=== PATIENT | female | born 1995 | race Caucasian/White ===

== ENCOUNTER → 2016-04-26 | Outpatient (CLI) | payer OTHER ==
[2016-04-26 14:38] LABS: BASO % 0.1 %; BASO ABS # 0.01 K/uL (0-0.2); COMPLETE YES; EOS % 0.1 %; HEMATOCRIT 41.6 % (37-47); IG% 0.2 %; LYMPH % 14.3 %; MEAN CELL VOLUME 87.9 fL (80-100); MEAN CORPUSCULAR HEMOGLOBIN 30.9 pg (25-34); MEAN CORPUSCULAR HGB CONC 35.1 g/dl (32-36); MEAN PLATELET VOLUME 11.2 fL (7.4-10.4); MONO % 4.2 %; NEUT % 81.1 %; PLATELET COUNT 271 K/uL (130-400); RED BLOOD COUNT 4.73 M/uL (4.2-5.4); WHITE BLOOD COUNT 9.76 K/uL (4.8-10.8)
== END | disposition home or self-care (01) ==
LOC: C.LAB1850 12:45
PROVIDERS: ATTEND Internal Medicine Pulmonary Disease
DX: J45.909 Unspecified asthma, uncomplicated (principal)

== ENCOUNTER → 2016-05-01 | Outpatient (CLI) | payer OTHER ==
--- NOTE | 2016-05-01 10:06 | DIAGNOSTIC IMAGING REPORT ---
CT SCAN OF THE PARANASAL SINUSES CLINICAL HISTORY: Cough. Sinusitis. COMPARISON STUDY: No priors. TECHNIQUE: High-resolution CT scan of the paranasal sinuses is performed. Images are reviewed in the axial, sagittal, and coronal planes. IV contrast was not administered for this examination. CT DOSE: 609.85 mGy.cm FINDINGS: Maxillary antra: Mild mucosal thickening seen on the right. Moderate to advanced because of thickening within air-fluid level seen on the left. Hyperdense secretions are noted in the left. Anterior ethmoid sinuses: Opacified on the left, moderate to advanced mucosal thickening on the right. Posterior ethmoid sinuses: Subtotally opacified on the left. Mild mucosal thickening on the right. Sphenoid sinuses: Moderate mucosal thickening with air-fluid levels is seen bilaterally. Frontal sinuses: Mild to moderate mucosal thickening is seen on the right. Moderate mucosal thickening is seen on the left with an air-fluid level. Ostiomeatal complexes: Occluded bilaterally. Frontoethmoidal and sphenoethmoidal recesses: The left sphenoethmoidal recess is occluded. The right sphenoethmoidal recess is severely narrowed by mucosal thickening but remains patent. The frontoethmoidal recesses are occluded bilaterally. Carotid arteries: The carotid arteries are covered and without septal attachments. Ethmoid roofs: There is asymmetric elevation of the left ethmoid roof as compared to the right. Nasal turbinates: Normal in appearance. Nasal septum: There is rightward deviation of the bony nasal septum with a bony spur. Optic nerves: Covered. Orbits: The bony orbits are intact. Orbital contents are normal in appearance. Calvarium: The imaged calvarium is normal in appearance Mastoid air cells: Well pneumatized. Brain parenchyma: Partially visualized brain parenchyma is within normal limits. IMPRESSION: Pansinusitis as above. Electronically signed by: Raul Banda M.D. 05/01/2016 10:05 AM Dictated Date/Time: 05/01/2016 9:59 AM
== END | disposition home or self-care (01) ==
LOC: C.CTS 09:44
PROVIDERS: ATTEND Internal Medicine Pulmonary Disease
DX: R05 Cough (principal); J32.4 Chronic pansinusitis

== ENCOUNTER → 2016-05-22 | Outpatient (CLI) | payer OTHER | END | disposition home or self-care (01) | LOC: C.LAB1850 15:32 | PROVIDERS: ATTEND Internal Medicine Pulmonary Disease | DX: R07.9 Chest pain, unspecified (principal) ==

== ENCOUNTER 2017-06-08 19:47 | Emergency (ER) | payer OTHER ==
[~2017-06-08] VITALS: Ht 157.5 cm; Wt 49.5 kg
[2017-06-08 19:49] VITALS: Ht 157.5 cm; Wt 49.5 kg
[2017-06-08] MEDS ORDERED: FAMOTIDINE 20 MG TAB PO STA (20:13)
[2017-06-08] MEDS ORDERED: GI COCKTAIL PO STA (20:13)
[2017-06-08] MEDS ORDERED: SUCRALFATE 1 GM TAB PO STA (20:13)
[2017-06-08] MEDS ORDERED: SODIUM CHLORIDE 0.9% 1000ML 1,000 ML IV STA (20:13)
--- NOTE | 2017-06-08 20:16 | EMERGENCY ROOM VISIT NOTE ---
History Report prepared by Vinicio: Koko Dale Under the Supervision of: Dr. Louie Peters M.D. First contact with patient: 20:01 Chief Complaint: ABDOMINAL PAIN Stated Complaint: ABD PAIN Nursing Triage Summary: lower abd pain that radiates to back History of Present Illness The patient is a 22 year old female who presents to the Emergency Room with complaints of waxing and waning abdominal pain that started a couple months ago. She states that she has been feeling generally unwell over the past couple months, with mostly constant nausea and general fatigue. The patient states that she has also had muscle, joint, and bone pain "all over". She says that eating makes her abdominal pain worse. The patient notes that last night, she laid down and her legs went "", which was followed up by abdominal pain, and more full body pain. She notes that she has to force herself to eat due to her nausea. The patient says that while taking a bath earlier today, she had yellow vaginal discharge. She notes that she saw her EXCHANGE ADMINISTRATOR 2 days ago and everything seemed normal, but she did not have cultures done. The patient adds that she has seen her primary care physician for her symptoms, and had an ultrasound done of her gallbladder, which came back normal. She notes that she has been constipated recently. The patient states that for the past several years, she has been getting lightheaded when sitting up. She got tested for POTS and it was negative. The patient says that she got checked for Lyme a year ago and it was negative. She notes that she has not noticed any tick bites or weird rashes, and she does not work in the [employer]. She says that her last menstrual period ended 2 days ago, and she denies any chance of retaining a tampon or chance or . Source of History: patient Onset: A couple months ago Position: abdomen Quality: other (pain) Timing: waxes/wanes Modifying Factors (Worsening): eating Associated Symptoms: + nausea, + fatigue Note: Associated symptoms: Full body pain. Yellow vaginal discharge yesterday. Legs "went " last night. Review of Systems See HPI for pertinent positives & negatives. A total of 10 systems reviewed and were otherwise negative. Past Medical & Surgical Medical Problems: (1) Asthma (2) Chronic fatigue Surgical Problems: (1) History of spinal fusion Family History Cancer Heart disease Hypertension Social History Smoking Status: Never Smoker Drug Use: none Marital Status: single Occupation Status: employed Current/Historical Medications Scheduled Fexofenadine Hcl (Elizabeth), 180 MG PO DAILY Montelukast Sodium (Singulair), 10 MG PO DAILY Allergies Coded Allergies: Amoxicillin (Unverified Allergy, Unknown, ., 06/08/17) Cephalexin (Unverified Allergy, Unknown, ., 06/08/17) Ciprofloxacin (Unverified Allergy, Unknown, ., 06/08/17) Citalopram (Unverified Allergy, Unknown, ., 06/08/17) Physical Exam Vital Signs Date Time Temp Pulse Resp B/P (MAP) Pulse Ox O2 Delivery O2 Flow Rate FiO2 06/09/17 00:04 36.3 82 18 108/66 99 06/08/17 22:44 90 18 113/68 99 Room Air 06/08/17 21:29 92 18 113/68 96 Room Air 06/08/17 20:31 92 06/08/17 20:28 78 21 115/66 100 Room Air 06/08/17 19:49 36.3 130 18 121/74 99 Room Air Physical Exam GENERAL: Awake, alert, tearful on exam, in no acute distress HENT: Normocephalic, atraumatic. Oropharynx unremarkable. EYES: Normal conjunctiva. Sclera non-icteric. NECK: Supple. No nuchal rigidity. FROM. No JVD. RESPIRATORY: Clear to auscultation. CARDIAC: Regular rate, normal rhythm. Extremities warm and well perfused. Pulses equal. ABDOMEN: Soft, non-distended. Tender in the left lower quadrant. No rebound or guarding. No masses. RECTAL: Deferred. MUSCULOSKELETAL: Chest examination reveals no tenderness. The back is symmetrical on inspection without obvious abnormality. There is no CVA tenderness to palpation. No joint edema. LOWER EXTREMITIES: Calves are equal size bilaterally and non-tender. No edema. No discoloration. NEURO: Normal sensorium. No sensory or motor deficits noted. SKIN: No rash or jaundice noted. Medical Decision & Procedures ER Provider Diagnostic Interpretation: CT ABD/PELVIS IV AND ORAL CONT CLINICAL HISTORY: Diffuse abdominal pain COMPARISON STUDY: None. TECHNIQUE: Following the IV administration of 91 mL of Optiray-320, CT scan of the abdomen and pelvis was performed from the lung bases to the proximal femurs. Images are reviewed in the axial, sagittal, and coronal planes. IV contrast was administered without complication. A dose lowering technique was utilized adhering to the principles of ALARA. CT DOSE: 252.11 mGy.cm FINDINGS: Lower chest: The heart is normal in size and configuration, without pericardial effusion. The lung bases and pleural spaces are clear. Liver: The contrast-enhanced liver is normal in size, contour, and attenuation. There is no intrahepatic biliary ductal dilatation. The hepatic veins and portal veins are patent. Gallbladder: Unremarkable. Spleen: Normal in size and attenuation. Pancreas: Unremarkable. Adrenal glands: Unremarkable. Kidneys: There is symmetric renal cortical enhancement. The kidneys are normal in size without hydronephrosis. Bowel: There are no transition zones to indicate bowel obstruction. There is no acute diverticulitis. The appendix appears normal. Peritoneum: There is no intraperitoneal free air or abdominal ascites. Vasculature: The abdominal aorta is normal in course and caliber. Adenopathy: None. Pelvic viscera: The bladder, and pelvic viscera are unremarkable. Skeletal structures: There are postsurgical changes of thoracolumbar spinal rodding. There is secondary artifact from the metallic hardware. 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 IMPRESSION: 1. Postsurgical changes within the spine with secondary streak artifact 2. 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 No acute intra-abdominal or pelvic findings. 4. No evidence of bowel obstruction. No evidence of free air 5. Normal appendix. No evidence of acute diverticulitis. Electronically signed by: Len Leroy M.D. 06/09/2017 6:45 AM Dictated Date/Time: 06/09/2017 6:42 AM The status of this report is Signed. Draft = Not yet reviewed or approved by Radiologist. Signed = Reviewed and approved by Radiologist. Laboratory Results 06/08/17 20:20 Red Blood Count 5.34, Mean Corpuscular Volume 88.2, Mean Corpuscular Hemoglobin 31.6, Mean Corpuscular Hemoglobin Concent 35.9, Mean Platelet Volume 11.3, Neutrophils (%) (Auto) 64.8, Lymphocytes (%) (Auto) 24.9, Monocytes (%) (Auto) 9.3, Eosinophils (%) (Auto) 0.6, Basophils (%) (Auto) 0.2, Neutrophils # (Auto) 4.04, Lymphocytes # (Auto) 1.55, Monocytes # (Auto) 0.58, Eosinophils # (Auto) 0.04, Basophils # (Auto) 0.01 06/08/17 20:20 Test 06/08/17 20:20 06/08/17 21:25 White Blood Count 6.23 K/uL (4.8-10.8) Red Blood Count 5.34 M/uL (4.2-5.4) Hemoglobin 16.9 g/dL (12.0-16.0) Hematocrit 47.1 % (37-47) Mean Corpuscular Volume 88.2 fL (80-100) Mean Corpuscular Hemoglobin 31.6 pg (25-34) Mean Corpuscular Hemoglobin Concent 35.9 g/dl (32-36) Platelet Count 216 K/uL (130-400) Mean Platelet Volume 11.3 fL (7.4-10.4) Neutrophils (%) (Auto) 64.8 % Lymphocytes (%) (Auto) 24.9 % Monocytes (%) (Auto) 9.3 % Eosinophils (%) (Auto) 0.6 % Basophils (%) (Auto) 0.2 % Neutrophils # (Auto) 4.04 K/uL (1.4-6.5) Lymphocytes # (Auto) 1.55 K/uL (1.2-3.4) Monocytes # (Auto) 0.58 K/uL (0.11-0.59) Eosinophils # (Auto) 0.04 K/uL (0-0.5) Basophils # (Auto) 0.01 K/uL (0-0.2) RDW Standard Deviation 39.0 fL (36.4-46.3) RDW Coefficient of Variation 12.2 % (11.5-14.5) Immature Granulocyte % (Auto) 0.2 % Immature Granulocyte # (Auto) 0.01 K/uL (0.00-0.02) Anion Gap 9.0 mmol/L (3-11) Est Creatinine Clear Calc Drug Dose 84.7 ml/min Estimated GFR () 119.6 Estimated GFR (Non- 103.2 BUN/Creatinine Ratio 14.9 (10-20) Calcium Level 10.2 mg/dl (8.5-10.1) Total Bilirubin 0.5 mg/dl (0.2-1) Direct Bilirubin 0.1 mg/dl (0-0.2) Aspartate Amino Transf (AST/SGOT) 18 U/L (15-37) Alanine Aminotransferase (ALT/SGPT) 26 U/L (12-78) Alkaline Phosphatase 79 U/L (45-117) Total Protein 9.4 gm/dl (6.4-8.2) Albumin 4.9 gm/dl (3.4-5.0) Lipase 263 U/L (73-393) Monoscreen NEG (NEG) Urine Color YELLOW Urine Appearance CLEAR (CLEAR) Urine pH 6.0 (4.5-7.5) Urine Specific [place] 1.007 (1.000-1.030) Urine Protein NEG (NEG) Urine Glucose (UA) NEG (NEG) Urine Ketones 1+ (NEG) Urine Occult Blood NEG (NEG) Urine Nitrite NEG (NEG) Urine Bilirubin NEG (NEG) Urine Urobilinogen NEG (NEG) Urine Leukocyte Esterase SMALL (NEG) Urine WBC (Auto) 1-5 /hpf (0-5) Urine RBC (Auto) 0-4 /hpf (0-4) Urine Hyaline Casts (Auto) 0 /lpf (0-5) Urine Epithelial Cells (Auto) 5-10 /lpf (0-5) Urine Bacteria (Auto) NEG (NEG) Urine Test NEG (NEG) Labs reviewed by ED physician. Medications Administered Medications (Trade) Dose Ordered Sig/Lizeth Route Start Time Stop Time Status Last Admin Dose Admin Sodium Chloride 1,000 ml @ 999 mls/hr Q1H1M STAT IV 06/08/17 20:13 06/08/17 21:13 DC 06/08/17 20:24 999 MLS/HR Miscellaneous Medication (Gi Cocktail) 24 ml NOW STAT PO 06/08/17 20:13 06/08/17 20:15 DC 06/08/17 20:23 24 ML Famotidine (Pepcid Tab) 20 mg NOW STAT PO 06/08/17 20:13 06/08/17 20:15 DC 06/08/17 20:23 20 MG Sucralfate (Carafate Tab) 1 gm NOW STAT PO 06/08/17 20:13 06/08/17 20:15 DC 06/08/17 20:23 1 GM Metoclopramide HCl (Reglan Inj) 10 mg NOW STAT IV 06/08/17 21:13 06/08/17 21:14 DC 06/08/17 21:24 10 MG Potassium Chloride (Klor-Con M10) 40 meq STK-MED ONCE .ROUTE 06/08/17 21:20 06/08/17 21:21 DC 06/08/17 21:24 40 MEQ ED Course 2004: Past medical records reviewed. The patient was evaluated in room B10. A complete history and physical examination was performed. 2012: Carafate Tab 1 gm PO, Pepcid Tab 20 mg PO, GI Cocktail 24 ml PO, NSS 1000 ml @ 999 mls/hr IV. 2112: Reglan Inj 10 mg IV. 2113: Klor-Con Tab 40 meq PO. 2146: I reevaluated the patient and she is doing better. Medical Decision Differential diagnosis: Etiologies such as appendicitis, diverticulitis, PUD, biliary pathology, UTI, pancreatitis, obstruction, mesenteric ischemia, aortic pathology, infections, inflammatory bowel disease, renal colic, as well as others were entertained. This is a 22-year-old female who presents the emergency department complaining of epigastric pain. The patient was sent for CAT scan of the abdomen and pelvis however this does not show any acute process. In addition the patient was given a GI cocktail, Pepcid and Carafate along with Reglan. Repeat abdominal examination revealed improvement in the patient's symptoms. I do feel that the patient is well enough to be discharged home however I stressed the need for clear liquid diet over the next 48 hours along with Pepcid or Prilosec at bedtime. In addition serial abdominal examinations were performed on the patient in the emergency department and at no time to the patient exhibited a surgical abdomen. Patient and mother were in agreement with the treatment plan. Medication Reconcilliation Current Medication List: was personally reviewed by me Blood Pressure Screening Patient's blood pressure: Normal blood pressure Impression Primary Impression: Abdominal pain Scribe Attestation The scribe's documentation has been prepared under my direction and personally reviewed by me in its entirety. I confirm that the note above accurately reflects all work, treatment, procedures, and medical decision making performed by me. Departure Information Dispostion Home / Self-Care Referrals Destiny Pearce D.O. (PCP) Patient Instructions My [facility] Problem Qualifiers Primary Impression: Abdominal pain Abdominal location: epigastric Qualified Codes: R10.13 - Epigastric pain
[2017-06-08] MEDS ORDERED: ALUMINUM/MAGNESIUM SUSP 30 ML UDC ONE (20:19)
[2017-06-08] MEDS ORDERED: LIDOCAINE HCL 2% VISC SOLN 20 ML UDC ONE (20:19)
[2017-06-08 20:32] LABS: BASO % 0.2 %; BASO ABS # 0.01 K/uL (0-0.2); EOS % 0.6 %; EOS ABS # 0.04 K/uL (0-0.5); HEMATOCRIT 47.1 % (37-47); HEMOGLOBIN 16.9 g/dL (12.0-16.0); IG# 0.01 K/uL (0.00-0.02); LYMPH % 24.9 %; LYMPH ABS # 1.55 K/uL (1.2-3.4); MEAN CELL VOLUME 88.2 fL (80-100); MEAN CORPUSCULAR HEMOGLOBIN 31.6 pg (25-34); MEAN CORPUSCULAR HGB CONC 35.9 g/dl (32-36); MEAN PLATELET VOLUME 11.3 fL (7.4-10.4); MONO % 9.3 %; MONO ABS # 0.58 K/uL (0.11-0.59); NEUT % 64.8 %; NEUT ABS # 4.04 K/uL (1.4-6.5); PLATELET COUNT 216 K/uL (130-400); RED CELL DISTRIBUTION WIDTH CV 12.2 % (11.5-14.5); WHITE BLOOD COUNT 6.23 K/uL (4.8-10.8)
[2017-06-08] MEDS ORDERED: MONT1TAB3 PO (20:43)
[2017-06-08] MEDS ORDERED: FEXO1TAB46 PO (20:43)
[2017-06-08 20:55] LABS: ALBUMIN 4.9 gm/dl (3.4-5.0); CALCIUM 10.2 mg/dl (8.5-10.1); CREATININE 0.8 mg/dl (0.60-1.20); POTASSIUM 3.2 mmol/L (3.5-5.1); TOTAL PROTEIN 9.4 gm/dl (6.4-8.2)
[2017-06-08] MEDS ORDERED: METOCLOPRAMIDE HCL INJ 5 MG/ML 2 ML VIAL IV STA (21:13)
[2017-06-08] MEDS ORDERED: POTASSIUM CHLORIDE 20 MEQ TABCR PO STA (21:14)
[2017-06-08] MEDS ORDERED: POTASSIUM CHLORIDE 10 MEQ TABCR ONE (21:20)
[2017-06-08] MEDS ORDERED: OPTIRAY 320 IV PRN (23:45)
[2017-06-09 00:04] VITALS: BP 108/66; PULSE 82; TEMP 36.3; O2SAT 99
--- NOTE | 2017-06-09 06:46 | DIAGNOSTIC IMAGING REPORT ---
CT ABD/PELVIS IV AND ORAL CONT CLINICAL HISTORY: Diffuse abdominal pain COMPARISON STUDY: None. TECHNIQUE: Following the IV administration of 91 mL of Optiray-320, CT scan of the abdomen and pelvis was performed from the lung bases to the proximal femurs. Images are reviewed in the axial, sagittal, and coronal planes. IV contrast was administered without complication. A dose lowering technique was utilized adhering to the principles of ALARA. CT DOSE: 252.11 mGy.cm FINDINGS: Lower chest: The heart is normal in size and configuration, without pericardial effusion. The lung bases and pleural spaces are clear. Liver: The contrast-enhanced liver is normal in size, contour, and attenuation. There is no intrahepatic biliary ductal dilatation. The hepatic veins and portal veins are patent. Gallbladder: Unremarkable. Spleen: Normal in size and attenuation. Pancreas: Unremarkable. Adrenal glands: Unremarkable. Kidneys: There is symmetric renal cortical enhancement. The kidneys are normal in size without hydronephrosis. Bowel: There are no transition zones to indicate bowel obstruction. There is no acute diverticulitis. The appendix appears normal. Peritoneum: There is no intraperitoneal free air or abdominal ascites. Vasculature: The abdominal aorta is normal in course and caliber. Adenopathy: None. Pelvic viscera: The bladder, and pelvic viscera are unremarkable. Skeletal structures: There are postsurgical changes of thoracolumbar spinal rodding. There is secondary artifact from the metallic hardware. 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 IMPRESSION: 1. Postsurgical changes within the spine with secondary streak artifact 2. 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 No acute intra-abdominal or pelvic findings. 4. No evidence of bowel obstruction. No evidence of free air 5. Normal appendix. No evidence of acute diverticulitis. Electronically signed by: Len Leroy M.D. 06/09/2017 6:45 AM Dictated Date/Time: 06/09/2017 6:42 AM
[2017-06-11 14:36] LABS: EBV EARLY ANTIGEN AB < 9.00 U/ML
== END 2017-06-09 00:05 | disposition home or self-care (01) ==
LOC: C.EDB 19:48
DX: R10.13 Epigastric pain (principal); J45.909 Unspecified asthma, uncomplicated; Z98.1 Arthrodesis status; Z82.49 Family history of ischemic heart disease and other diseases of the circulatory system; Z88.0 Allergy status to penicillin; Z88.1 Allergy status to other antibiotic agents; Z88.8 Allergy status to other drugs, medicaments and biological substances

== ENCOUNTER 2017-06-14 14:43 | Emergency (ER) | payer OTHER ==
[~2017-06-14] VITALS: Ht 157.5 cm; Wt 47.9 kg
[~2017-06-14 14:43] MED LIST: FEXO1TAB46 PO; MONT1TAB3 PO
[2017-06-14 14:56] VITALS: TEMP 36.6; Ht 157.5 cm; Wt 47.9 kg
[2017-06-14] MEDS ORDERED: SODIUM CHLORIDE 0.9% 1000ML 1,000 ML IV STA ×2 (15:32→16:32)
[2017-06-14] MEDS ORDERED: GI COCKTAIL PO STA (15:32)
[2017-06-14] MEDS ORDERED: ONDANSETRON INJ 2 MG/ML 2 ML VIAL IV STA (15:32)
[2017-06-14] MEDS ORDERED: KETOROLAC TROMETHAMINE 30 MG/ML VIAL IV STA (15:32)
[2017-06-14] MEDS ORDERED: ALUMINUM/MAGNESIUM SUSP 30 ML UDC ONE (15:53)
[2017-06-14] MEDS ORDERED: LIDOCAINE HCL 2% VISC SOLN 20 ML UDC ONE (15:53)
--- NOTE | 2017-06-14 16:00 | DIAGNOSTIC IMAGING REPORT ---
CHEST ONE VIEW PORTABLE CLINICAL HISTORY: 22 years-old Female presenting with cp . TECHNIQUE: Portable upright AP view of the chest was obtained. COMPARISON: 04/05/2016. FINDINGS: Cardiomediastinal silhouette normal. Mild hyperinflation. No focal opacity. No large effusion or pneumothorax. Extended thoracolumbar fusion hardware. No significant scoliosis. Upper abdomen normal. IMPRESSION: 1. No acute cardiopulmonary disease. Electronically signed by: Dennis Dhillon M.D. 06/14/2017 3:59 PM Dictated Date/Time: 06/14/2017 3:58 PM
[2017-06-14 16:02] LABS: BASO % 0.1 %; BASO ABS # 0.01 K/uL (0-0.2); EOS % 0.5 %; EOS ABS # 0.05 K/uL (0-0.5); HEMATOCRIT 42.7 % (37-47); IG# 0.02 K/uL (0.00-0.02); LYMPH % 20.3 %; LYMPH ABS # 2.06 K/uL (1.2-3.4); MEAN CELL VOLUME 87.9 fL (80-100); MEAN CORPUSCULAR HEMOGLOBIN 30.9 pg (25-34); MEAN CORPUSCULAR HGB CONC 35.1 g/dl (32-36); MEAN PLATELET VOLUME 11.1 fL (7.4-10.4); MONO % 7.5 %; MONO ABS # 0.76 K/uL (0.11-0.59); NEUT % 71.4 %; NEUT ABS # 7.25 K/uL (1.4-6.5); PLATELET COUNT 220 K/uL (130-400); RED CELL DISTRIBUTION WIDTH CV 12.2 % (11.5-14.5); RED CELL DISTRIBUTION WIDTH SD 39.1 fL (36.4-46.3); WHITE BLOOD COUNT 10.15 K/uL (4.8-10.8)
--- NOTE | 2017-06-14 16:02 | DIAGNOSTIC IMAGING REPORT ---
KUB CLINICAL HISTORY: 22 years-old Female presenting with chest pain. TECHNIQUE: Single supine view of the abdomen was obtained. COMPARISON: 06/08/2016. FINDINGS: Nonobstructive bowel gas pattern. Mild stool burden throughout the colon. No gross pneumoperitoneum. Allowing for bowel gas and stool, no calcifications to suggest nephrolithiasis. Thoracolumbar posterior fusion hardware. No significant scoliosis. No acute osseous injury is apparent. Lung bases clear. IMPRESSION: 1. No acute intra-abdominal pathology. Electronically signed by: Dennis Dhillon M.D. 06/14/2017 4:00 PM Dictated Date/Time: 06/14/2017 3:59 PM
[2017-06-14 16:23] LABS: ALBUMIN 4.4 gm/dl (3.4-5.0); ALT/SGPT 21 U/L (12-78); BLOOD UREA NITROGEN 6 mg/dl (7-18); CALCIUM 9.4 mg/dl (8.5-10.1); CARBON DIOXIDE 26 mmol/L (21-32); CREATININE 0.86 mg/dl (0.60-1.20); GLUCOSE 84 mg/dl (70-99); LIPASE 284 U/L (73-393); POTASSIUM 3.4 mmol/L (3.5-5.1); SODIUM 139 mmol/L (136-145)
[2017-06-14 16:28] LABS: ALKALINE PHOSPHATASE 60 U/L (45-117); AST/SGOT 19 U/L (15-37); TOTAL PROTEIN 8.4 gm/dl (6.4-8.2)
[2017-06-14] MEDS ORDERED: SUCR1TAB29 PO (17:52)
--- NOTE | 2017-06-14 17:59 | EMERGENCY ROOM VISIT NOTE ---
History Report prepared by Vinicio: Cindy Valente Under the Supervision of: Dr. Macario Woods D.O. First contact with patient: 15:22 Chief Complaint: CHEST PAIN Stated Complaint: CHEST PAIN Nursing Triage Summary: Patient ambulatory to triage with an upright and steady gait, states "I had an upper GI performed by Dr. Peterson around 1100 yesterday. I woke up from the procedure with chest pain in the center of my chest. I have been nauseated and have had a lot of heart burn. I had a fever last night throughout the night. I have been using tums and prilosec for the pain with no relief." History of Present Illness The patient is a 22 year old female who presents to the Emergency Room with complaints of constant chest pain beginning this morning. The patient notes having heart burn as well. The patient reports she had a upper endoscopy by Dr. Peterson yesterday for ongoing "stomach issues". Per mother, the patient did not get any results from her endoscopy yesterday. She states she has had worsening generalized abdominal pain for the last week. Abdominal pain is truly been there for the past 3 months. She notes some nausea. The patient notes some vaginal spotting and vaginal discharge today. Abdominal pain is fairly constant in nature now in the left upper quadrant although this can be diffuse. No true exacerbating or remitting factors. The patient states she has had some abdominal cramping which is followed by vaginal bleeding for the past couple weeks. She reports difficulty emptying her bladder and abdominal pain when she urinates beginning a couple weeks ago. Pt denies headache, change in vision, fevers, shortness of breath, nausea, vomiting, diarrhea, and melena. Patient denies diabetes, hypertension, hyperlipidemia, CAD, history of sudden at a young age, and smoking. Patient denies swelling of calves, recent trips, history of immobilization or recent surgery, prior history of DVT , hemoptysis, history of malignancy, history of smoking, or control/ estrogen use. The patient had a negative CT on June 08. EGD from 06/13/17 Impression: Normal esophagus. Biopsied. Normal stomach. Biopsied. Normal examined duodenum. Biopsied. US PELVIS TRANS-ABDOMINAL/TRANSVAGINAL from 06/12/17 Impression: Unremarkable pelvic ultrasound. US ABDOMEN from 05/27/17 Impression: Normal sonographic evaluation of the right upper quadrant. Source of History: patient Onset: this morning Position: chest Quality: other (pain) Timing: constant Associated Symptoms: + chest pain, + nausea, + abdominal pain, + urinary symptoms, No fevers, No headache, No SOB, No vomiting, No diarrhea Review of Systems See HPI for pertinent positives & negatives. A total of 10 systems reviewed and were otherwise negative. Past Medical & Surgical Medical Problems: (1) Asthma (2) Chronic fatigue Surgical Problems: (1) History of spinal fusion Family History Cancer Heart disease Hypertension Social History Smoking Status: Never Smoker Drug Use: none Marital Status: single Occupation Status: employed Current/Historical Medications Scheduled Fexofenadine Hcl (Elizabeth), 180 MG PO DAILY Montelukast Sodium (Singulair), 10 MG PO DAILY Sucralfate (Carafate), 1 GM PO QID Allergies Coded Allergies: Amoxicillin (Unverified Allergy, Unknown, ., 06/08/17) Cephalexin (Unverified Allergy, Unknown, ., 06/08/17) Ciprofloxacin (Unverified Allergy, Unknown, ., 06/08/17) Citalopram (Unverified Allergy, Unknown, ., 06/08/17) Physical Exam Vital Signs Date Time Temp Pulse Resp B/P (MAP) Pulse Ox O2 Delivery O2 Flow Rate FiO2 06/14/17 15:57 76 20 102/65 98 Room Air 06/14/17 14:56 36.6 99 18 120/73 99 Room Air 06/14/17 14:54 99 Room Air Physical Exam GENERAL: Sitting up in bed, alert, well appearing, holding her abdomen, no distress, non-toxic EYE EXAM: normal conjunctiva. OROPHARYNX: no exudate, no erythema, lips, buccal mucosa, and tongue normal and mucous membranes are moist NECK: supple, no nuchal rigidity, no adenopathy, non-tender CHEST: Minimal tenderness over bilateral anterior chest wall LUNGS: Clear to auscultation. Normal chest wall mechanics HEART: no murmurs, S1 normal and S2 normal ABDOMEN: mild diffuse tenderness. abdomen soft, normo-active bowel sounds, no masses, no rebound or guarding. BACK: Back is symmetrical on inspection and there is no deformity, no midline tenderness, no CVA tenderness. SKIN: no rashes and no bruising UPPER EXTREMITIES: upper extremities are grossly normal. LOWER EXTREMITIES: No pitting edema. Calves equal bilaterally. NEURO EXAM: Normal sensorium, cranial nerves II-XII grossly intact, normal speech, no gross weakness of arms, no gross weakness of legs. Medical Decision & Procedures ER Provider Diagnostic Interpretation: Radiology results as stated below per my review and the radiologist's interpretation: CHEST ONE VIEW PORTABLE FINDINGS: Cardiomediastinal silhouette normal. Mild hyperinflation. No focal opacity. No large effusion or pneumothorax. Extended thoracolumbar fusion hardware. No significant scoliosis. Upper abdomen normal. IMPRESSION: 1. No acute cardiopulmonary disease. Electronically signed by: Dennis Dhillon M.D. KUB FINDINGS: Nonobstructive bowel gas pattern. Mild stool burden throughout the colon. No gross pneumoperitoneum. Allowing for bowel gas and stool, no calcifications to suggest nephrolithiasis. Thoracolumbar posterior fusion hardware. No significant scoliosis. No acute osseous injury is apparent. Lung bases clear. IMPRESSION: 1. No acute intra-abdominal pathology. Electronically signed by: Dennis Dhillon M.D. Laboratory Results 06/14/17 15:36 Red Blood Count 4.86, Mean Corpuscular Volume 87.9, Mean Corpuscular Hemoglobin 30.9, Mean Corpuscular Hemoglobin Concent 35.1, Mean Platelet Volume 11.1, Neutrophils (%) (Auto) 71.4, Lymphocytes (%) (Auto) 20.3, Monocytes (%) (Auto) 7.5, Eosinophils (%) (Auto) 0.5, Basophils (%) (Auto) 0.1, Neutrophils # (Auto) 7.25, Lymphocytes # (Auto) 2.06, Monocytes # (Auto) 0.76, Eosinophils # (Auto) 0.05, Basophils # (Auto) 0.01 06/14/17 15:36 Test 06/14/17 15:36 06/14/17 17:05 White Blood Count 10.15 K/uL (4.8-10.8) Red Blood Count 4.86 M/uL (4.2-5.4) Hemoglobin 15.0 g/dL (12.0-16.0) Hematocrit 42.7 % (37-47) Mean Corpuscular Volume 87.9 fL (80-100) Mean Corpuscular Hemoglobin 30.9 pg (25-34) Mean Corpuscular Hemoglobin Concent 35.1 g/dl (32-36) Platelet Count 220 K/uL (130-400) Mean Platelet Volume 11.1 fL (7.4-10.4) Neutrophils (%) (Auto) 71.4 % Lymphocytes (%) (Auto) 20.3 % Monocytes (%) (Auto) 7.5 % Eosinophils (%) (Auto) 0.5 % Basophils (%) (Auto) 0.1 % Neutrophils # (Auto) 7.25 K/uL (1.4-6.5) Lymphocytes # (Auto) 2.06 K/uL (1.2-3.4) Monocytes # (Auto) 0.76 K/uL (0.11-0.59) Eosinophils # (Auto) 0.05 K/uL (0-0.5) Basophils # (Auto) 0.01 K/uL (0-0.2) RDW Standard Deviation 39.1 fL (36.4-46.3) RDW Coefficient of Variation 12.2 % (11.5-14.5) Immature Granulocyte % (Auto) 0.2 % Immature Granulocyte # (Auto) 0.02 K/uL (0.00-0.02) Anion Gap 7.0 mmol/L (3-11) Est Creatinine Clear Calc Drug Dose 76.3 ml/min Estimated GFR () 109.6 Estimated GFR (Non- 94.6 BUN/Creatinine Ratio 7.2 (10-20) Calcium Level 9.4 mg/dl (8.5-10.1) Total Bilirubin 0.7 mg/dl (0.2-1) Direct Bilirubin 0.1 mg/dl (0-0.2) Aspartate Amino Transf (AST/SGOT) 19 U/L (15-37) Alanine Aminotransferase (ALT/SGPT) 21 U/L (12-78) Alkaline Phosphatase 60 U/L (45-117) Troponin I < 0.015 ng/ml (0-0.045) Total Protein 8.4 gm/dl (6.4-8.2) Albumin 4.4 gm/dl (3.4-5.0) Lipase 284 U/L (73-393) Lyme Disease IgG Antibody NEG (NEG) Lyme Disease IgM Antibody NEG (NEG) Urine Color YELLOW Urine Appearance CLEAR (CLEAR) Urine pH 7.5 (4.5-7.5) Urine Specific [place] 1.012 (1.000-1.030) Urine Protein NEG (NEG) Urine Glucose (UA) NEG (NEG) Urine Ketones TRACE (NEG) Urine Occult Blood NEG (NEG) Urine Nitrite NEG (NEG) Urine Bilirubin NEG (NEG) Urine Urobilinogen NEG (NEG) Urine Leukocyte Esterase TRACE (NEG) Urine WBC (Auto) 1-5 /hpf (0-5) Urine RBC (Auto) 0-4 /hpf (0-4) Urine Hyaline Casts (Auto) 0 /lpf (0-5) Urine Epithelial Cells (Auto) 5-10 /lpf (0-5) Urine Bacteria (Auto) NEG (NEG) Urine Test NEG (NEG) Laboratory results per my review. Medications Administered Medications (Trade) Dose Ordered Sig/Lizeth Route Start Time Stop Time Status Last Admin Dose Admin Ondansetron HCl (Zofran Inj) 4 mg NOW STAT IV 06/14/17 15:32 06/14/17 15:34 DC 06/14/17 15:56 4 MG Ketorolac Tromethamine (Toradol Inj) 30 mg NOW STAT IV 06/14/17 15:32 06/14/17 15:34 DC 06/14/17 15:56 30 MG Sodium Chloride 1,000 ml @ 999 mls/hr Q1H1M STAT IV 06/14/17 15:32 06/14/17 16:32 DC 06/14/17 15:32 999 MLS/HR Lidocaine HCl (Viscous Lidocaine 2% Soln) 20 ml STK-MED ONCE .ROUTE 06/14/17 15:53 06/14/17 15:54 DC 06/14/17 15:55 20 ML Al Hydroxide/Mg Hydroxide (Maalox Susp) 30 ml STK-MED ONCE .ROUTE 06/14/17 15:53 06/14/17 15:54 DC 06/14/17 15:55 30 ML Sodium Chloride 1,000 ml @ 999 mls/hr Q1H1M STAT IV 06/14/17 16:32 06/14/17 17:32 DC 06/14/17 16:32 999 MLS/HR ECG Per My Interpretation Indication: chest pain Rate (beats per minute): 75 Findings: other (normal axis, intraventricular conduction delay, poor baseline ) ED Course ED COURSE: Vital signs were reviewed and showed normal The patients medical record was reviewed The above diagnostic studies were performed and reviewed. ED treatments and interventions as stated above. 1523: The patient was evaluated in room C6. A complete history and physical examination was performed. 1532: Ordered Sodium Chloride 1000 ml @ 999 mls/hr IV, Toradol Inj 30 mg IV, Zofran Inj 4 mg IV, GI cocktail 24 ml PO. 1553: Ordered Maalox Susp 30 ml .ROUTE, Lidocaine HCl 20 ml .ROUTE. 1604: The patient's previous ultrasounds were recieved. 1632: Ordered Sodium Chloride 1000 ml @ 999 mls/hr IV. 1702: I updated the patient on her test results. Her chest pain is now resolved. 1800: Upon reevaluation, the patient is resting comfortably.I discussed my findings with the patient and she understands and agrees with the treatment plan. Based on the patients age, coexisting illnesses, exam and lab findings the decision to treat as an outpatient was made. The patient remained stable while under my care. The patient appeared well at the time of discharge. Medical Decision Differential diagnoses includes but is not limited to gastritis, peptic ulcer disease, GERD, gallbladder disease, pancreatitis, small bowel obstruction, acute coronary syndrome, pericarditis, ischemic bowel, irritable bowel disease, irritable bowel syndrome, appendicitis, diverticulitis, malignancy, hernia, urinary tract infection, torsion, /ectopic (if female), perforation, trauma, infectious. Patient is a 22-year-old female presents to ER with abdominal pain and epigastric burning checking up the middle of her sternum. Epigastric burning has been tracking up and present since upper endoscopy performed yesterday. Abdominal pain has been intermittent and diffuse for the past 3 months. No true exacerbating or remitting factors. She does have mild diffuse tenderness on exam. Chest x-ray and KUB show no perforation but a large amount of stool. UGI was negative but did show some bile in the stomach. Ultrasound performed at the end of May of the right upper quadrant showed no gallstones. Pelvic ultrasound performed on the was completely negative. CT on the was negative. CBC along with BMP, LFTs, bilirubin and lipase was unremarkable. Troponin was negative. EKG was unremarkable. Chest pain resolved with a GI cocktail. UA was negative. was negative. Lyme was negative. Multiple long conversation with patient at bedside and Dr. Eduard as this patient is a family friend and she was okay with having him involved in the case. Plan was for MiraLAX cleanout. She will follow-up with GI and PCP as an outpatient. Prescribed Carafate for the reflux. Do favor this is likely a motility issue and possibly gastroparesis. Vitals were stable. Patient was updated at bedside and discharged to follow-up with PCP and GI as an outpatient. Discussed with Pt concerning signs and symptoms to watch out for. Pt was instructed to follow up with their PCP and discussed with the patient their option to return to the ED at anytime for persistent or worsening symptoms. The appropriate anticipatory guidance and out-patient management, including indications for return to the emergency department, were explained at length to the patient and understood. Medication Reconcilliation Current Medication List: was personally reviewed by me Blood Pressure Screening Patient's blood pressure: Normal blood pressure Impression Primary Impression: Diffuse abdominal pain Additional Impression: Chest pain Scribe Attestation The scribe's documentation has been prepared under my direction and personally reviewed by me in its entirety. I confirm that the note above accurately reflects all work, treatment, procedures, and medical decision making performed by me. Departure Information Dispostion Home / Self-Care Prescriptions Sucralfate (CARAFATE) 1 Gm Tab 1 GM PO QID, #40 TAB Prov: Macario Woods, 06/14/17 Referrals Rohini Kemp, D.OAriana (PCP) Forms HOME CARE DOCUMENTATION FORM, IMPORTANT VISIT INFORMATION Patient Instructions Abdominal Pain - [facility], Chest Pain - [facility], [facility] Additional Instructions Please follow up with your primary care doctor with in the next 24 hours. Any worsening of your symptoms, please return to the ED immediately. This includes any fevers greater than 100.4, worsening pain, chest pain, shortness breath, persistent nausea, vomiting, unable to eat or drink, or any other concerning signs or symptoms from your standpoint. Please take MiraLAX 250 g mixed with 64 ounces of Gatorade. Please drink 8 ounces every 15-20 minutes until you have a bowel movement. At this time please stop drinking the MiraLAX and continue to hydrate with regular oral liquids. Problem Qualifiers Additional Impression: Chest pain Chest pain type: unspecified Qualified Codes: R07.9 - Chest pain, unspecified
[2017-06-14] MEDS ORDERED: SUCRALFATE 1 GM TAB ONE (18:00)
[2017-06-14 18:03] VITALS: BP 108/70; PULSE 68; O2SAT 99
== END 2017-06-14 18:05 | disposition home or self-care (01) ==
LOC: C.EDB 14:43 → C.EDC 18:05
DX: R07.9 Chest pain, unspecified (principal); R10.84 Generalized abdominal pain; J45.909 Unspecified asthma, uncomplicated; Z98.1 Arthrodesis status; R53.82 Chronic fatigue, unspecified; Z80.9 Family history of malignant neoplasm, unspecified; Z82.49 Family history of ischemic heart disease and other diseases of the circulatory system; Z79.899 Other long term (current) drug therapy; Z88.0 Allergy status to penicillin; Z88.1 Allergy status to other antibiotic agents; Z88.8 Allergy status to other drugs, medicaments and biological substances

== ENCOUNTER 2025-01-21 07:57 | Inpatient (IN) ==
[2025-01-21] MEDS ORDERED: OXYTOCIN 30 UNITS/NSS 30 UNITS/500 ML BAG IV PRN (08:03)
[2025-01-21] MEDS ORDERED: LIDOCAINE 1% LOCAL 20 ML VIAL INFIL PRN (08:03)
--- NOTE | 2025-01-21 08:28 | History & Physical Report ---
"Date of Service January 21, 2025 Assessment & Plan (1) 40 weeks gestation of : Plan Pitocin Patient would like epidural Arom when indicated Monitor tracing, category 1 Admission and Anticipated Discharge Date Admission Date: January 21, 2025 History of Present Illness Chief Complaint: IOL Primary Care Provider: Thea Rosenthal, DO 30 yo at 40w3d admitted for IOL for postdates. Denies complications. She had previous and would like to attempt . She takes vitamins and Flonase medication. Contractions: irregular Fluid loss: none Bloody show: none FM: present Denies NESBITT, CP, SOB, N/V/D, LE pain. GBS neg, RH+ Allergies Allergy/AdvReac Type Severity Reaction Status Date / Time ciprofloxacin [From Cipro] Allergy Severe Seizure Verified 01/20/25 10:18 amoxicillin Allergy Mild Hives Verified 01/20/25 10:18 cephalexin Allergy Mild Unknown Verified 01/20/25 10:18 citalopram Allergy Mild Shakiness Verified 01/20/25 10:18 latex AdvReac Mild Rash Verified 01/20/25 10:18 nickel AdvReac Mild Rash Verified 01/20/25 10:18 derma cuellar Allergy Intermediate Hives Uncoded 01/20/25 10:18 Home Medications Medication Instructions Recorded Confirmed Type clobetasol 0.05 % topical ointment 1 applic topical DAILY PRN hands 11/25/24 01/20/25 History fluticasone propionate 50 2 spray intranasal DAILY PRN 11/25/24 01/21/25 History mcg/actuation nasal allergies spray,suspension (Flonase Allergy Relief) mupirocin 2 % topical ointment 1 applic topical DAILY PRN hands 11/25/24 01/20/25 History [id number] 1 mg 1 tab PO DAILY 11/25/24 01/21/25 History tablet Patient History Medical History Fourth degree perineal laceration hx- with 1st delivery (2020) (epidural without issues) History of anesthesia reaction difficulty waking History of asthma due to allergies, no longer has issues/no inhaler History of chicken pox History of Holter monitoring (2022) had been having chest pain a few years ago, no cardiac findings, had muscle/rib displaced History of scoliosis s/p spinal fusion CXR 06/14/17: Extended thoracolumbar fusion hardware. No significant scoliosis Thoracic/lumbar spine xray 01/25/15 ([facility] records): Posterior pedicle fusion through approximately L3, hardware and alignment without significant change from 08/30/2008 per report. 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 S/P spinal fusion (2006) Status post surgery Marsupialization of bartholin gland cyst Family History Father Heart disease Grandfather (Paternal) Heart disease Denies family history of Ovarian cancer Breast cancer Colorectal cancer Social History (System 10/28/24 @ 07:43 by Pam Jaramillo) Smoking Status: Never smoker Second Hand Exposure: No; Do You Dip or Chew Tobacco: No; Tobacco Cessation Education Requested by Patient: No Hx Alcohol Use: No Hx Substance Use: No Preferred Language: Niuean Communication Ability: Effective Repulping Supervisor Required: No Beliefs That Will Affect Care: None and Protestant marital status: marital status details: Fernandez Clark [phone] Current Living Situation: Spouse and Family Current Living Situation Comment: Fernandez-, Lupillo-4, Norma-2 current occupational status: employed current occupation: [employer] Other Information That Helps Us Care for You: No Feels Safe at Home: Yes Safety Concerns: Feels Safe At This Time Assistive Devices: None OB History : 3 Full term: 2 Premature: 0 Total Number of Induced Abortions: 0 Total Number of Spontaneous Abortions: 0 Ectopics: 0 Multiple births: 0 Number of Living Children: 2 Del. Date GA wks Lbr Lgth wt Sex Type del Anes Place Del Prov ? Comment 05/21/20 41 12 9 M Epidura l Other [place] N 4th degree tear 10/09/22 39 8-6 F Spin al Other [place] N breech MEDICAL PRACTICE MANAGER History Last menstrual period: Yes Menstrual reliability: definite Flow: normal Menstrual regularity: regular Monthly: Yes Age at menarche: 12 On control pills at conception: No Menstrual history comments: cycles 30-33 days Details: last pap 06/2024 [facility] Review of Systems All systems reviewed & are unremarkable except as noted in HPI & below Physical Exam Physical Exam: General: patient resting comfortably, NAD, non-toxic in appearance, AA&O x 4, answers questions appropriately. Skin: warm, dry, intact HEENT: NC/AT, anicteric sclera, conjunctiva without injection, moist mucus membranes Heart: +S1/S2, regular, no m/r/g Lungs: equal air entry bilaterally, no rales/rhonchi/wheezes Abd: +BS, soft, NT/ND, gravid uterus Cervical: 4|70|-3|, uterus soft and mid, estimated weight 7-8 lbs Ext: warm, no clubbing/cyanosis or edema Neuro: nonfocal, patient AA&O x 4, speech intact, no facial droop, moving all extremities on command. : FHR baseline 150, moderate variability, accelerations present, decelerations absent Results & Data Vital Signs (Past 12 Hours) Vital Signs Pulse BP 01/21/25 08:13 112 H 105/71 Laboratory Results OB Labs: Hgb 12.4 g/dl (12.0-16.0) 10/30/24 Hct 37.5 % (37.0-47.0) 10/30/24 MCV 87.9 fL (80-100) 06/14/17 Plt Count 220 K/uL (130-400) 06/14/17 Treponema pallidum Ab Negative (Negative) 10/30/24 Glucose 1 Hr 50 gm 76 mg/dl (70-130) 10/30/24 OB Optional Labs: No Data to Display Labs Reviewed: Initial OB Labs 06/12/24 Blood Type & RH B positive Antibody Screen negative HCT/HGB 40.4/14.0 Platelets 256 Hep C IgG 13yrs+ Old negative Pap Test WNL, HPV negative Chlamydia negative Gonorrhea negative Rubella positive RPR nonreactive Urine Culture/Screen no significant growth HBsAg negative HIV negative MCV 88.2 Ultrasound declined genetic testing--[facility] Supervising Physician Co-Signing Physician Notes Resident Physician Supervision Note: I interviewed and examined the patient. Discussed with Dr. Duncan and agree with findings and plan as documented in the note. Any exceptions or clarifications are listed here: Patient would like to trial labor, we reviewed both consent and consent in office. Questions answered, and patient is aware of risk of uterine rupture, possible need for emergency c- section and possible need for hysterectomy. Will start pitocin. Documented By: Monica Urbina, DO Resident Activity Tracking Resident Involvement: Resident Care Provided Care Provided: OB Delivery"
[2025-01-21 09:03] LABS: Hematocrit (blood only) 33.5 % (37.0-47.0); Hemoglobin 11.3 g/dL (12.0-16.0); Mean Corpuscular Hemoglobin 28.3 pg (25.0-34.0); Mean Corpuscular Volume 83.8 fL (80.0-100.0); Platelet Count 282 K/uL (130-400); RDW Standard Deviation 41.2 fL (36.4-46.3); Red Blood Count 4.00 M/uL (4.20-5.40); White Blood Count 14.04 K/ul (4.8-10.8)
[2025-01-21] MEDS ORDERED: SODIUM CHLORIDE 0.9% 100 ML IV PRN (09:09)
[2025-01-21] MEDS: OXYTOCIN 30 UNITS/NSS 30 UNITS/500 ML BAG IV PRN ×2 (09:50→23:26)
[2025-01-21] MEDS: LACTATED RINGER'S 1,000 ML IV PRN (09:50)
[2025-01-21] MEDS: ONDANSETRON INJ 2 MG/ML 2 ML VIAL IV PRN (16:27)
[2025-01-21] MEDS ORDERED: ROPIVACAINE 0.5% PF 5 MG/ML 20 ML VIAL EPI PRN (19:02)
[2025-01-21] MEDS ORDERED: fentANYL 2 MCG/ML BUPIVacaine 0.125%-NSS 100ML BAG EPI PRN (19:02)
[2025-01-21] MEDS ORDERED: NALOXONE HCL 0.4 MG/1 ML VIAL/CARP IV PRN (19:02)
[2025-01-21] MEDS ORDERED: ONDANSETRON INJ 2 MG/ML 2 ML VIAL IV PRN (19:02)
[2025-01-21] MEDS ORDERED: NALBUPHINE HCL INJ 10 MG/ML AMP IV PRN (19:02)
[2025-01-21] MEDS ORDERED: BUPIVACAINE 0.25% PF 30 ML VIAL EPI PRN (19:02)
[2025-01-21] MEDS ORDERED: diphenhydrAMINE 50 MG/ML VIAL IV PRN (19:02)
[2025-01-21] MEDS ORDERED: NALOXONE HCL 1 MG in SODIUM CHLORIDE 0.9% 1,000 ML IV PRN (19:02)
[2025-01-21] MEDS ORDERED: SODIUM CHLORIDE 0.9% PF INJ 10 ML VIAL EPI PRN (19:02)
[2025-01-21] MEDS ORDERED: LIDOCAINE 2% MPF LOCAL 5 ML VIAL EPI PRN (19:02)
--- NOTE | 2025-01-21 19:05 | Anesthesiology Consultation ---
Date of Service January 21, 2025 Assessment & Plan (1) Encounter for pre-operative examination: Chart Review Chart Review: Patient NOT seen in Pre Admission Testing and Acceptable Risk for Labor Epidural Consults Requested none History Height/Weight Height: 5 ft 2 in Weight: 65.771 kg Allergies Allergy/AdvReac Type Severity Reaction Status Date / Time ciprofloxacin [From Cipro] Allergy Severe Seizure Verified 01/20/25 10:18 amoxicillin Allergy Mild Hives Verified 01/20/25 10:18 cephalexin Allergy Mild Unknown Verified 01/20/25 10:18 citalopram Allergy Mild Shakiness Verified 01/20/25 10:18 latex AdvReac Mild Rash Verified 01/20/25 10:18 nickel AdvReac Mild Rash Verified 01/20/25 10:18 derma cuellar Allergy Intermediate Hives Uncoded 01/20/25 10:18 Medications Home Medications Medication Instructions Recorded Confirmed Last Taken clobetasol 0.05 % topical ointment 1 applic topical DAILY PRN hands 11/25/24 01/20/25 Unknown fluticasone propionate 50 2 spray intranasal DAILY PRN 11/25/24 01/21/25 01/21/25 mcg/actuation nasal allergies spray,suspension (Flonase Allergy Relief) mupirocin 2 % topical ointment 1 applic topical DAILY PRN hands 11/25/24 01/20/25 Unknown [id number] 1 mg 1 tab PO DAILY 11/25/24 01/21/25 01/19/25 tablet Active Medications Generic Name Dose Route Start Last Admin Trade Name Freq PRN Reason Stop Dose Admin Lactated Ringer's 1,000 mls @ 125 mls/hr 01/21/25 08:03 01/21/25 19:16 Lr IV 01/23/25 08:02 125 mls/hr .Q8H PRN Administration L&D Protocol Protocol Oxytocin 30 units in 500 mls @ 5 mls/hr 01/21/25 09:10 01/21/25 18:58 Pitocin 30 Units/Nss IV 01/23/25 09:09 0.3 units/hr .Q24H PRN 5 mls/hr Labor Induction/Augmentation Titration Protocol 0.3 UNITS/HR Ondansetron HCl 4 mg 01/21/25 12:03 01/21/25 16:27 Ondansetron Inj 2 Mg/Ml 2 Ml Vial IV 02/20/25 12:02 4 mg Q6H PRN Administration Nausea And Vomiting Past Medical History Medical History Thrombosis - superficial thrombophlebitis - secondary to IV placement for Bartholin gland cyst marsupialization - thrombosis vs superficial thrombophlebitis (not a DVT per patient) to leg (s/p childbirth 2020) - no medications needed - just observation Seasonal allergies History of Holter monitoring (2022) had been having chest pain a few years ago, no cardiac findings, had muscle/rib displaced History of asthma due to allergies, no longer has issues/no inhaler History of anesthesia reaction difficulty waking History of scoliosis s/p spinal fusion CXR 06/14/17: Extended thoracolumbar fusion hardware. No significant scoliosis Thoracic/lumbar spine xray 01/25/15 ([facility] records): Posterior pedicle fusion through approximately L3, hardware and alignment without significant change from 08/30/2008 per report. 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 S/P spinal fusion (2006) Status post surgery Marsupialization of bartholin gland cyst S/P section (2022) due to breech presentation (done in [place]) Per [facility] scanned outside facility anesthesia records - SAB done 10/09/2022 at L3-4 without noted issues Past Anesthesia History No Hx of Anesthesia Complications and No Family Hx of Anesthesia Complications Social History Smoking Status: Never smoker Do You Dip or Chew Tobacco: No Hx Alcohol Use: No Hx Substance Use: No substance use type: does not use Physical Exam Vital Signs Last Vital Signs Temp 37.0 C 01/21/25 19:05 Pulse 85 01/21/25 19:26 Resp 18 01/21/25 19:05 BP 104/50 L 01/21/25 19:26 Pulse Ox 98 01/21/25 19:24 Testing Laboratory Results 01/21/25 08:40 Blood Type B Positive 01/21/25 08:40 Antibody Screen NEGATIVE 01/21/25 08:40
[2025-01-21] MEDS: LIDOCAINE 2%/EPINEPHRINE 1:200,000 20 ML PF ONE (19:29)
[2025-01-21] MEDS: fentANYL 2 MCG/ML BUPIVacaine 0.125%-NSS 100ML BAG ONE (19:29)
[2025-01-21] MEDS: BUPIVACAINE 0.25% PF 30 ML VIAL ONE (19:29)
[2025-01-21] MEDS: SODIUM CHLORIDE 0.9% PF INJ 10 ML VIAL ONE (20:11)
[2025-01-21] MEDS: BUPIVACAINE 0.25% PF 30 ML VIAL EPI STA (20:11)
[2025-01-21] MEDS: LIDOCAINE 2%/EPINEPHRINE 1:200,000 20 ML PF EPI STA (20:12)
[2025-01-21] MEDS: SODIUM CHLORIDE 0.9% PF INJ 10 ML VIAL EPI STA (20:12)
--- NOTE | 2025-01-21 20:32 | Labor Progress Brief Note ---
Date of Service January 21, 2025 Subjective Comfortable now with epidural - starting to feel some increase in pressure. SROM prior to epidural. FHT Cat 1 Cove Neck Q 2-4 SVE /-2 Continue pitocin. Assessment & Plan Admission and Anticipated Discharge Date Admission Date: January 21, 2025 Results & Data Vital Signs (Past 12 Hours) Vital Signs Temp Pulse Resp BP Pulse Ox O2 Del Method 01/21/25 20:25 74 92/55 L 01/21/25 20:24 87 98 01/21/25 20:21 77 107/56 L 01/21/25 20:19 77 99 01/21/25 20:16 78 89/51 L 01/21/25 20:14 97 H 98 01/21/25 20:12 76 86/47 L 01/21/25 20:09 82 97 01/21/25 20:06 80 90/54 L 01/21/25 20:04 81 98 01/21/25 20:01 80 88/53 L 01/21/25 20:00 18 01/21/25 20:00 18 01/21/25 19:59 83 98 01/21/25 19:55 78 90/55 L 01/21/25 19:54 89 99 01/21/25 19:50 89 90/55 L 01/21/25 19:49 92 H 98 01/21/25 19:48 80 95/51 L 01/21/25 19:46 87 88/51 L 01/21/25 19:44 99 01/21/25 19:44 101 H 01/21/25 19:44 100 H 91/53 L 01/21/25 19:43 37.0 C 18 01/21/25 19:43 Room Air 01/21/25 19:42 80 88/49 L 01/21/25 19:40 81 92/50 L 01/21/25 19:39 81 97 01/21/25 19:38 93 H 97/50 L 01/21/25 19:36 82 92/52 L 01/21/25 19:34 98 01/21/25 19:34 78 01/21/25 19:34 81 96/52 L 01/21/25 19:32 88 98/57 L 01/21/25 19:30 82 87/49 L 01/21/25 19:29 75 97 01/21/25 19:28 60 96/55 L 01/21/25 19:26 85 104/50 L 01/21/25 19:24 98 01/21/25 19:24 80 01/21/25 19:24 80 107/57 L 01/21/25 19:22 88 112/66 01/21/25 19:19 82 98 01/21/25 19:15 82 108/59 L 01/21/25 19:14 86 100 01/21/25 19:05 18 01/21/25 19:05 37.0 C 18 01/21/25 18:02 20 01/21/25 18:02 36.4 C L 93 H 20 99/58 L 01/21/25 17:24 75 97/53 L 01/21/25 17:00 20 01/21/25 17:00 20 01/21/25 16:11 99 H 96/54 L 01/21/25 16:00 20 01/21/25 16:00 37.1 C 20 01/21/25 15:04 94 H 109/58 L 01/21/25 15:00 20 01/21/25 14:01 82 91/52 L 01/21/25 14:00 16 01/21/25 14:00 37.0 C 16 01/21/25 13:01 100 H 114/65 01/21/25 13:00 18 01/21/25 13:00 18 01/21/25 12:10 36.4 C L 85 18 90/55 L 01/21/25 12:00 18 01/21/25 12:00 18 01/21/25 11:00 16 01/21/25 11:00 16 01/21/25 10:31 116 H 110/70 Coding Level of Care Code None
[2025-01-21] MEDS ORDERED: NURSING L&D Epidural Breakthrough Pain Update ONE (22:11)
[2025-01-21] MEDS: TRANEXAMIC ACID / 0.7% NACL 1,000 MG/100 ML BAG IV STA (23:35)
--- NOTE | 2025-01-21 23:48 | Delivery Summary ---
Vaginal Delivery Summary Date of Service January 21, 2025 Vaginal Delivery Summary and 3rd Degree LAC Vaginal Delivery Summary: Pre-delivery diagnoses: 30yo @ 40 3/7, h/o x 1, desire for TOLAC, h/o scoliosis surgery Post-delivery diagnoses: same Procedure: vaginal after () Surgeon: Monica Urbina DO Complications: none Findings: Viable female . Apgars: 8/9 . Weight pending, please see nursery records Estimated QBL: 657cc Description of delivery: The patient progressed to complete with epidural anesthesia. She then began to push. She spontaneously vaginally delivered a viable from the cephalic presentation. The head delivered in HALLIE position. Nuchal x 1, easily reduced. The anterior shoulder delivered, followed by the posterior shoulder, followed by the body. The baby was placed on mother's abdomen and a spontaneous cry was heard. Delayed cord clamping was employed, and the cord was doubly clamped and cut. Cord blood was obtained. The placenta was delivered spontaneously intact with a 3-vessel cord. The uterus and vagina were swept of clots and debris. IV pitocin was given. The uterus became firm. The cervix, vagina, and perineum were inspected. A 3rd degree perineal laceration was noted - rectal exam revealed no rectal involvement. The bilateral edges of anal sphincter muscle were identified and grasped with Allis clamps. The anal sphincter was reapproximated with figure of eight sutures of 3-0 Chromic suture. The remaining laceration was repaired in standard fashion with 3-0 Vicryl. There were multiple areas of poor tissue integrity that were bleeding, these were brought together carefully with 3-0 Vicryl [id number] sutures. During the repair, given the friable tissue that was actively bleeding and difficult to pull together without tearing through the suture, 1g TXA was ordered in an effort to assit with hemostasis. Excellent hemostasis was observed at the conclusion of the repair. The mother and baby are recovering in stable and good condition in the room. Sponge, needle and instrument counts were correct x 2. Monica Urbina DO [facility] Vaginal Delivery Charge Vaginal Delivery Codes: 28207 global code for the antepartum, delivery, and post- Delivery Type Details: and 3rd Degree LAC
--- NOTE | 2025-01-21 23:56 | Anesthesia Procedure Note ---
Date of Service January 21, 2025 Anesthesia Post Epidural Note Vital Signs Vital Signs: Temp Pulse Resp BP Pulse Ox O2 Del Method 36.7 C 126 H 18 96/59 L 97 Room Air 01/21/25 21:15 01/21/25 23:51 01/21/25 22:30 01/21/25 23:51 01/21/25 23:15 01/21/25 19:43 Pain Intensity Bilateral Abdomen: Pain Intensity: 6 Notes Mental Status: alert / awake / arousable and participated in evaluation Patient Amnestic to Procedure: No Nausea / Vomiting: adequately controlled Pain: adequately controlled Airway Patency, RR, SpO2: stable & adequate BP & HR: stable & adequate Hydration State: stable & adequate Neuraxial Anesthesia: was administered and sensory block is resolving Anesthetic Complications: no major complications apparent and Pt Satisfied with anesthetic care Epidural: Removed without complications and With tip intact
[2025-01-22] MEDS ORDERED: HYDROCORTISONE ACETATE 25 MG SUPP PR PRN (00:03)
[2025-01-22] MEDS ORDERED: OXYTOCIN 30 UNITS/NSS 30 UNITS/500 ML BAG IV PRN (00:03)
[2025-01-22] MEDS: BENZOCAINE 20% SPRY 85 APPLN/85 GM CAN EXT PRN (01:36)
[2025-01-22] MEDS: IBUPROFEN 600 MG TAB PO PRN (01:42)
[2025-01-22] MEDS: ACETAMINOPHEN 325 MG TAB PO PRN (03:19)
[2025-01-22 06:08] LABS: Hematocrit (blood only) 29.1 % (37.0-47.0); Hemoglobin 9.7 g/dL (12.0-16.0)
--- NOTE | 2025-01-22 06:26 | Obstetrical Progress Note ---
Date of Service January 22, 2025 Assessment & Plan (1) care following vaginal delivery: Plan 30 yo post- day 1 s/p Feels well today. Vital signs stable Continue post- care Encourage ambulation and Pain controlled with ibuprofen Hgb stable Admission and Anticipated Discharge Date Admission Date: January 21, 2025 Supervising Physician Co-Signing Physician Notes Resident Physician Supervision Note: I was present with Dr. Duncan during the history and exam. I discussed the case with the resident and agree with the findings and plan as documented in the note. Any exceptions or clarifications are listed here: PPD#1 doing well, routine care. Documented By: Monica Urbina, DO Subjective 30 yo post- day 1 s/p Ambulation: ambulating normally Voiding: no voiding problems Passing Gas:: Yes Passing Stool:: No Diet Tolerance:: regular diet Lochia:: Small Feeding Type:: breast feeding Current Pain Level: 5/10 Resting comfortably this AM in NAD. Denies NESBITT, CP, SOB, N/V/D, LE pain/swelling. Review of Systems Review of Systems: All systems reviewed & are unremarkable except as noted in HPI & below Physical Exam Physical Exam: General: patient resting comfortably, NAD, non-toxic in appearance, AA&O x 4, answers questions appropriately. Skin: warm, dry, intact HEENT: NC/AT, anicteric sclera, conjunctiva without injection, moist mucus membranes. Heart: +S1/S2, regular, no m/r/g Lungs: equal air entry bilaterally, no rales/rhonchi/wheezes Abd: +BS, soft, NT/ND, uterine fundus firm at umbilicus Ext: warm, no clubbing/cyanosis or edema, Shen's neg. Neuro: nonfocal, patient AA&O x 4, speech intact, no facial droop, moving all extremities on command. Results & Data Vital Signs (Past 12 Hours) Vital Signs Temp Pulse Pulse Resp BP BP Pulse Ox 01/22/25 02:59 36.5 C 78 18 90/55 L 96 01/22/25 02:45 18 01/22/25 02:36 95 H 95/53 L 01/22/25 01:37 86 100/52 L 01/22/25 01:35 36.8 C 18 01/22/25 01:35 83 97 01/22/25 01:30 77 96 01/22/25 01:25 81 95 01/22/25 01:20 84 97 01/22/25 01:15 70 97 01/22/25 01:10 73 96 01/22/25 01:06 74 96/55 L 01/22/25 01:05 18 01/22/25 01:05 76 98 01/22/25 01:00 91 H 99 01/22/25 00:55 78 97 01/22/25 00:50 75 97 01/22/25 00:45 85 97 01/22/25 00:40 96 H 96 01/22/25 00:36 88 92/61 L 01/22/25 00:35 18 01/22/25 00:35 90 98 01/22/25 00:30 77 96 01/22/25 00:25 81 97 01/22/25 00:21 77 93/54 L 01/22/25 00:20 18 01/22/25 00:20 83 96 01/22/25 00:15 87 96 01/22/25 00:10 88 97 01/22/25 00:06 89 95/61 L 01/22/25 00:05 18 01/22/25 00:05 93 H 97 01/22/25 00:00 91 H 96 01/21/25 23:55 86 96 01/21/25 23:51 126 H 96/59 L 01/21/25 23:50 18 01/21/25 23:36 78 95/55 L 01/21/25 23:35 18 01/21/25 23:22 92 H 101/50 L 01/21/25 23:15 79 97 01/21/25 23:10 79 96 01/21/25 23:05 83 97 01/21/25 23:00 100 H 98 01/21/25 22:55 81 98 01/21/25 22:54 89 87 L 01/21/25 22:50 84 99 01/21/25 22:45 79 100 01/21/25 22:40 88 99 01/21/25 22:38 75 135/85 01/21/25 22:35 78 100 01/21/25 22:30 77 18 100 01/21/25 22:27 71 93 01/21/25 22:25 70 100 01/21/25 22:21 64 99/70 L 01/21/25 22:20 70 95 01/21/25 22:15 76 89 L 01/21/25 22:10 65 98 01/21/25 22:05 89 100 01/21/25 22:00 73 18 98 01/21/25 21:55 71 99 01/21/25 21:51 70 108/57 L 01/21/25 21:50 76 99 01/21/25 21:45 80 98 01/21/25 21:40 66 96 01/21/25 21:36 68 99/55 L 01/21/25 21:35 73 98 01/21/25 21:30 75 18 97 01/21/25 21:25 78 97 01/21/25 21:22 64 98/56 L 01/21/25 21:20 68 98 01/21/25 21:15 36.7 C 79 99 01/21/25 21:09 74 99 01/21/25 21:07 69 102/59 L 01/21/25 21:04 72 97 01/21/25 21:00 20 01/21/25 21:00 20 01/21/25 20:59 73 98 01/21/25 20:54 82 97 01/21/25 20:50 75 100/56 L 01/21/25 20:49 84 98 01/21/25 20:46 78 99/58 L 01/21/25 20:44 73 97 01/21/25 20:41 72 98/51 L 01/21/25 20:39 83 98 01/21/25 20:36 75 104/52 L 01/21/25 20:34 78 96 01/21/25 20:32 73 106/68 01/21/25 20:30 18 01/21/25 20:30 18 01/21/25 20:29 71 97 01/21/25 20:25 74 92/55 L 01/21/25 20:24 87 98 01/21/25 20:21 77 107/56 L 01/21/25 20:19 77 99 01/21/25 20:16 78 89/51 L 01/21/25 20:14 97 H 98 01/21/25 20:12 76 86/47 L 01/21/25 20:09 82 97 01/21/25 20:06 80 90/54 L 01/21/25 20:04 81 98 01/21/25 20:01 80 88/53 L 01/21/25 20:00 18 01/21/25 20:00 18 01/21/25 19:59 83 98 01/21/25 19:55 78 90/55 L 01/21/25 19:54 89 99 01/21/25 19:50 89 90/55 L 01/21/25 19:49 92 H 98 01/21/25 19:48 80 95/51 L 01/21/25 19:46 87 88/51 L 01/21/25 19:44 99 01/21/25 19:44 101 H 01/21/25 19:44 100 H 91/53 L 01/21/25 19:43 37.0 C 18 01/21/25 19:43 01/21/25 19:42 80 88/49 L 01/21/25 19:40 81 92/50 L 01/21/25 19:39 81 97 01/21/25 19:38 93 H 97/50 L 01/21/25 19:36 82 92/52 L 01/21/25 19:34 98 01/21/25 19:34 78 01/21/25 19:34 81 96/52 L 01/21/25 19:32 88 98/57 L 01/21/25 19:30 82 87/49 L 01/21/25 19:29 75 97 01/21/25 19:28 60 96/55 L 01/21/25 19:26 85 104/50 L 01/21/25 19:24 98 01/21/25 19:24 80 01/21/25 19:24 80 107/57 L 01/21/25 19:22 88 112/66 01/21/25 19:19 82 98 01/21/25 19:15 82 108/59 L 01/21/25 19:14 86 100 01/21/25 19:05 18 01/21/25 19:05 37.0 C 18 O2 Del Method 01/22/25 02:59 Room Air 01/22/25 02:45 01/22/25 02:36 01/22/25 01:37 01/22/25 01:35 01/22/25 01:35 01/22/25 01:30 01/22/25 01:25 01/22/25 01:20 01/22/25 01:15 01/22/25 01:10 01/22/25 01:06 01/22/25 01:05 01/22/25 01:05 01/22/25 01:00 01/22/25 00:55 01/22/25 00:50 01/22/25 00:45 01/22/25 00:40 01/22/25 00:36 01/22/25 00:35 01/22/25 00:35 01/22/25 00:30 01/22/25 00:25 01/22/25 00:21 01/22/25 00:20 01/22/25 00:20 01/22/25 00:15 01/22/25 00:10 01/22/25 00:06 01/22/25 00:05 01/22/25 00:05 01/22/25 00:00 01/21/25 23:55 01/21/25 23:51 01/21/25 23:50 01/21/25 23:36 01/21/25 23:35 01/21/25 23:22 01/21/25 23:15 01/21/25 23:10 01/21/25 23:05 01/21/25 23:00 01/21/25 22:55 01/21/25 22:54 01/21/25 22:50 01/21/25 22:45 01/21/25 22:40 01/21/25 22:38 01/21/25 22:35 01/21/25 22:30 01/21/25 22:27 01/21/25 22:25 01/21/25 22:21 01/21/25 22:20 01/21/25 22:15 01/21/25 22:10 01/21/25 22:05 01/21/25 22:00 01/21/25 21:55 01/21/25 21:51 01/21/25 21:50 01/21/25 21:45 01/21/25 21:40 01/21/25 21:36 01/21/25 21:35 01/21/25 21:30 01/21/25 21:25 01/21/25 21:22 01/21/25 21:20 01/21/25 21:15 01/21/25 21:09 01/21/25 21:07 01/21/25 21:04 01/21/25 21:00 01/21/25 21:00 01/21/25 20:59 01/21/25 20:54 01/21/25 20:50 01/21/25 20:49 01/21/25 20:46 01/21/25 20:44 01/21/25 20:41 01/21/25 20:39 01/21/25 20:36 01/21/25 20:34 01/21/25 20:32 01/21/25 20:30 01/21/25 20:30 01/21/25 20:29 01/21/25 20:25 01/21/25 20:24 01/21/25 20:21 01/21/25 20:19 01/21/25 20:16 01/21/25 20:14 01/21/25 20:12 01/21/25 20:09 01/21/25 20:06 01/21/25 20:04 01/21/25 20:01 01/21/25 20:00 01/21/25 20:00 01/21/25 19:59 01/21/25 19:55 01/21/25 19:54 01/21/25 19:50 01/21/25 19:49 01/21/25 19:48 01/21/25 19:46 01/21/25 19:44 01/21/25 19:44 01/21/25 19:44 01/21/25 19:43 01/21/25 19:43 Room Air 01/21/25 19:42 01/21/25 19:40 01/21/25 19:39 01/21/25 19:38 01/21/25 19:36 01/21/25 19:34 01/21/25 19:34 01/21/25 19:34 01/21/25 19:32 01/21/25 19:30 01/21/25 19:29 01/21/25 19:28 01/21/25 19:26 01/21/25 19:24 01/21/25 19:24 01/21/25 19:24 01/21/25 19:22 01/21/25 19:19 01/21/25 19:15 01/21/25 19:14 01/21/25 19:05 01/21/25 19:05 Laboratory Results OB Labs: Hgb 12.4 g/dl (12.0-16.0) 10/30/24 Hct 37.5 % (37.0-47.0) 10/30/24 MCV 87.9 fL (80-100) 06/14/17 Plt Count 220 K/uL (130-400) 06/14/17 Treponema pallidum Ab Negative (Negative) 10/30/24 Glucose 1 Hr 50 gm 76 mg/dl (70-130) 10/30/24 OB Optional Labs: No Data to Display Labs Reviewed: Initial OB Labs 06/12/24 Blood Type & RH B positive Antibody Screen negative HCT/HGB 40.4/14.0 Platelets 256 Hep C IgG 13yrs+ Old negative Pap Test WNL, HPV negative Chlamydia negative Gonorrhea negative Rubella positive RPR nonreactive Urine Culture/Screen no significant growth HBsAg negative HIV negative MCV 88.2 Ultrasound declined genetic testing--[facility] Resident Activity Tracking Resident Involvement: Resident Care Provided Care Provided: OB Delivery
[2025-01-22] MEDS: PRENATAL VITAMIN 1 TAB PO SCH (07:17)
[2025-01-22] MEDS: DOCUSATE SODIUM 100 MG CAP PO SCH (07:17)
[2025-01-22] MEDS: DIPHTHER/TETAN/PERTUS Vaccine (Tdap, Adol/Adult) 0.5mL IM ONE (09:17)
[2025-01-22] MEDS: POLYETHYLENE (MIRALAX) 17 GM PACK PO PRN (16:13)
[2025-01-22 18:09] VITALS: O2SAT 98
[2025-01-23 00:27] VITALS: RESP 16
--- NOTE | 2025-01-23 06:26 | Obstetrical Progress Note ---
Date of Service January 23, 2025 Assessment & Plan (1) care following vaginal delivery: Plan 30 yo post- day 2 s/p Feels well today. Vital signs stable Continue post- care Encourage ambulation and Pain controlled with ibuprofen Hgb stable Discharge today, follow up with Dr. Urbina in 6 weeks. Admission and Anticipated Discharge Date Admission Date: January 21, 2025 Supervising Physician Co-Signing Physician Notes Resident Physician Supervision Note: I interviewed and examined the patient. Discussed with Dr. Duncan and agree with findings and plan as documented in the note. Any exceptions or clarifications are listed here: Doing well. Desires d/c. Instructions reviewed. f/u in 6 weeks. Documented By: Meron Alexander MD, FACOG Subjective 30 yo post- day 2 s/p Ambulation: ambulating normally Voiding: no voiding problems Passing Gas:: Yes Passing Stool:: No Diet Tolerance:: regular diet Lochia:: Small Feeding Type:: breast feeding Current Pain Level: 5/10 Resting comfortably this AM in NAD. Denies NESBITT, CP, SOB, N/V/D, LE pain/swelling. Review of Systems Review of Systems: All systems reviewed & are unremarkable except as noted in HPI & below Physical Exam Physical Exam: General: patient resting comfortably, NAD, non-toxic in appearance, AA&O x 4, answers questions appropriately. Skin: warm, dry, intact HEENT: NC/AT, anicteric sclera, conjunctiva without injection, moist mucus membranes. Heart: +S1/S2, regular, no m/r/g Lungs: equal air entry bilaterally, no rales/rhonchi/wheezes Abd: +BS, soft, NT/ND, uterine fundus firm at umbilicus Ext: warm, no clubbing/cyanosis or edema, Shen's neg. Neuro: nonfocal, patient AA&O x 4, speech intact, no facial droop, moving all extremities on command. Results & Data Vital Signs (Past 12 Hours) Vital Signs Temp Pulse Resp BP Pulse Ox O2 Del Method 01/23/25 00:00 36.8 C 86 16 97/57 L 98 Room Air 01/22/25 20:45 Room Air 01/22/25 20:45 36.6 C 88 18 107/66 Room Air Laboratory Results OB Labs: Hgb 12.4 g/dl (12.0-16.0) 10/30/24 Hct 37.5 % (37.0-47.0) 10/30/24 MCV 87.9 fL (80-100) 06/14/17 Plt Count 220 K/uL (130-400) 06/14/17 Treponema pallidum Ab Negative (Negative) 10/30/24 Glucose 1 Hr 50 gm 76 mg/dl (70-130) 10/30/24 OB Optional Labs: No Data to Display Labs Reviewed: Initial OB Labs 06/12/24 Blood Type & RH B positive Antibody Screen negative HCT/HGB 40.4/14.0 Platelets 256 Hep C IgG 13yrs+ Old negative Pap Test WNL, HPV neg ative Chlamydia negative Gonorrhea negative Rubella positive RPR nonreactive Urine Culture/Screen no significant growth HBsAg negative HIV negative MCV 88.2 Ultrasound declined genetic testing--[facility] Resident Activity Tracking Resident Involvement: Resident Care Provided Care Provided: OB Delivery
[2025-01-23 09:55] VITALS: BP 92/58; PULSE 87; TEMP 98.4
== END 2025-01-23 12:10 | disposition home or self-care (01) | DRG 768 ==
LOC: 4S1 07:57 → 4E2 01-22 03:09